=== PATIENT | female | born 1995 | race Caucasian/White ===

== ENCOUNTER 2016-11-05 20:51 | Emergency (ER) | payer SELFPAY ==
[2016-11-05 21:06] VITALS: BP 123/77
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
[2016-11-05] MEDS ORDERED: Naproxen TAB* 250 MG PO ONE (22:49)
[2016-11-05] MEDS ORDERED: Cyclobenzaprine TAB* 10 MG PO ONE (22:49)
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
== END 2016-11-05 23:22 | disposition home or self-care (01) ==
LOC: UCCORT 20:51
DX: S16.1XXA Strain of muscle, fascia and tendon at neck level, initial encounter (principal); S29.012A Strain of muscle and tendon of back wall of thorax, initial encounter; E66.9 Obesity, unspecified; V43.52XA Car driver injured in collision with other type car in traffic accident, initial encounter; Y92.9 Unspecified place or not applicable; Z72.0 Tobacco use
CPT/HCPCS: 72070; 72125; 99213; A9270-GY; G0463